=== PATIENT | male | born 1975 | race Caucasian/White ===

== ENCOUNTER 2016-03-15 09:11 | Emergency (ER) | payer SELFPAY ==
[2016-03-15 09:43] VITALS: TEMP 98; BMI 41.3
[2016-03-15] MEDS ORDERED: AZITHROMYCIN 250 MG TAB PO ONE (11:28)
[2016-03-15] MEDS ORDERED: PREDNISONE 20 MG TAB PO ONE (11:28)
--- NOTE | 2016-03-15 11:31 | EDPRACDOC ---
- General Information Chief Complaint: Sore Throat Stated Complaint: SORE THROAT / EARACHE Time Seen by Provider: 03/15/16 11:05 Information Source: Patient Mode Of Arrival: Car Home Medications: Home Medications Azithromycin [Zithromax] 250 mg PO DAILY #6 tablet 03/15/16 Prednisone [Deltasone, Orasone] 20 mg PO BID #12 tab 03/15/16 Allergies/Adverse Reactions: Allergies Allergy/AdvReac Type Severity Reaction Status Date / Time Penicillins Allergy Severe Difficulty Verified 03/15/16 09:43 Breathing - History of Present Illness Onset: 4 DAYS HPI: PT PRESENTS WITH SORE THROAT, FEVER AND NAUSEA THAT HAS BEEN ONGOING FOR THE PAST 4 DAYS. Sore Throat Symptoms: Reports: Pain White Spots Location: Reports: Pharynx Recent: Reports: None Relevant History of: Reports: None Pain Severity: Reports: Moderate Urinary Output: Normal Oral Intake: Decreased Associated Signs and Symptoms: Reports: Fever ED Past Medical History - History Reviewed Yes Nurses notes reviewed and agree except as marked - Patient Medical History Cardiac History: Reports: Hypertension Psychological History: Denies: Depression - Social Medical History Smoking Status: Heavy tobacco smoker (5 or more cigarettes/day or daily pipe/ cigar) EDM Review of Systems - Review of Systems ROS Negative Except as Marked: Yes All systems reviewed and were negative except as marked - Physical Exam Constitutional: Alert Oriented to: Time, Person, Place Last recorded Vital Signs: Last Vital Signs Temp 98.0 F 03/15/16 09:41 Pulse 67 03/15/16 09:41 Resp 18 03/15/16 09:41 BP 138/86 03/15/16 09:41 Pulse Ox 99 03/15/16 09:41 Oxygen Pulse Oxygen Saturation 99 O2 Device Room Air Oxygen Flow Rate Fraction of Inspired Oxygen ( FIO2) - HEENT Head: Normal ( normocephalic) Eye Exam: Normal (PERRL, EOMI, Sclera white) Oropharynx: Red, Tonsillar Hypertrophy, [place] Tympanic Membrane: Redness Nose: No Symptoms Reported (septum midline) Neck: Normal (FROM, trachea at midline) - Respiratory/Cardiovascular Respiratory: Normal - CTA (BBS clear to auscultation without adventitious sounds ) Cardiovascular: Normal (RRR without murmur, gallop or rub) - GI Auscultation: Normal (NABS) Palpation: Normal (Soft,No rebound or guarding, non distended) Tenderness: Non tender Moralez's Sign: Negative Rectal Exam: Deferred - Musculoskeletal Back: Normal (Non-Tender) Extremities: Normal (Normal tone, Pulses 2+ No cyanosis or edema, FROM) - Integumentary Skin: Normal, Warm, Dry Lymphatics: Normal (no adenopathy) - Neurologic Memory Impaired: Normal Motor Function: Normal (Normal tone, Pulses 2+ No cyanosis or edema, FROM) Cranial Nerve: Normal (CN II-X11 intact sensation, strength 5/5) Cerebellar: Normal Mood Description: Normal Perception: Normal - Differential Diagnosis Pharyngitis Streptococcal Decision Time to Discharge: 11:30 - Departure Disposition: Home Condition: Stable Final Diagnosis: Pharyngitis Instructions: Pharyngitis (ED) Education/Counseling Given To: Patient Education/Counseling Given Regarding: Diagnosis, Treatment, Prognosis, Follow Up Referrals: Hebert Nevarez MD [Staff Physician] - One Week Prescriptions: New Azithromycin [Zithromax] 250 mg PO DAILY #6 tablet Prednisone [Deltasone, Orasone] 20 mg PO BID #12 tab Additional Instructions: INCREASE FLUID INTAKE. FOLLOW UP WITH PRIMARY CARE PROVIDER NEXT WEEK. TAKE ALL ANTIBIOTICS PRESCRIBED. RETURN TO THE ED FOR WORSENING SYMPTOMS OR CONCERNS.
[2016-03-15 12:04] VITALS: BP 134/79; PULSE 74
== END 2016-03-15 11:38 | disposition home or self-care (01) ==
LOC: ED 09:11 → EDMC 11:38
DX: J02.9 Acute pharyngitis, unspecified (principal)
CPT/HCPCS: 99282; J3490